=== PATIENT | male | born 1985 | race American Indian/Alaskan Native ===

== ENCOUNTER 2021-04-09 23:56 | Emergency (ER) | payer OTHER ==
[2021-04-10] MEDS ORDERED: KETOROLAC 30 MG/1 ML INJ IV ONE (00:15)
[2021-04-10 00:43] LABS: Basophils # (Auto) 0.1 K/mm3 (0.0-0.1); Basophils % (Auto) 0.9 % (0.0-1.8); Eosinophils # (Auto) 0.1 K/mm3 (0.0-0.4); Eosinophils % (Auto) 2.6 % (0.0-4.3); Hemoglobin 14.4 gm/dl (11.8-15.2); Lymphocytes # (Auto) 1.1 K/mm3 (1.2-5.4); Lymphocytes % (Auto) 19.7 % (13.4-35.0); Mean Corpuscular HGB Conc 32 % (32-34); Mean Corpuscular Volume 85 fl (84-94); Monocytes # (Auto) 0.5 K/mm3 (0.0-0.8); Monocytes % (Auto) 8.5 % (0.0-7.3); Platelet Count 246 K/mm3 (140-440); Red Blood Count 5.29 M/mm3 (3.65-5.03); Red Cell Distribution Width 14.4 % (13.2-15.2)
[2021-04-10 01:09] LABS: BUN/Creatinine Ratio 10; Blood Urea Nitrogen 11 mg/dL (9-20); Calcium 8.9 mg/dL (8.4-10.2); Hemolysis Index 6
--- NOTE | 2021-04-10 01:15 | XRay Report ---
CHEST 1 VIEW INDICATION / CLINICAL INFORMATION: CP. COMPARISON: Prior chest radiograph, 05/06/2015 FINDINGS: SUPPORT DEVICES: None. HEART / MEDIASTINUM: No significant abnormality. LUNGS / PLEURA: There is mild pulmonary opacity in the right lung base. The remainder of the lungs ar e grossly clear. Overall appearance is nonspecific but cannot exclude the possibility of pneumonia. N o pneumothorax. ADDITIONAL FINDINGS: No significant additional findings. IMPRESSION: 1. Small pulmonary opacity, right lung base. Differential diagnosis includes atelectasis versus pneum onia. Clinical correlation recommended. Signer Name: Mariam Woodson MD Signed: 04/10/2021 1:10 AM Workstation Name: [id number]
[2021-04-10 01:19] LABS: INR 0.94 (0.87-1.13)
[2021-04-10 01:20] LABS: Partial Thromboplastin Time 31.8 Sec. (24.2-36.6)
[2021-04-10] MEDS ORDERED: dexAMETHasone 20 MG/5 ML VIAL IV ONE (01:49)
[2021-04-10] MEDS ORDERED: MORPHINE 4 MG/1 ML INJ IV ONE (01:49)
[2021-04-10] MEDS ORDERED: cefTRIAXone/NS 1 GM/50 ML 1 GM/50 ML BAG IV ONE (01:49)
[2021-04-10] MEDS ORDERED: AZITHROMYCIN/NS 500 MG/250 ML 500 MG/250 ML BAG IV ONE (01:49)
--- NOTE | 2021-04-10 02:55 | Emergency Department Report ---
ED Chest Pain HPI - General Chief Complaint: Chest Pain Stated Complaint: CHEST PAIN Time Seen by Provider: 04/10/21 00:09 Source: patient, EMS Mode of arrival: Stretcher Limitations: Other - History of Present Illness Initial Comments: Patient is a 35-year-old F Mal[place]ian male was previously healthy presenting from prison with chest pain. Patient states the pain started yesterday. Is a steady constant pain. States aching sore pain in the center of his chest. Patient states he does have a cough and was diagnosed with Covid approximately 2 weeks ago. Cough is nonproductive. Mild shortness of breath but denies any diaphoresis. No exertional component. Denies fevers chills nausea vomiting diarrhea. States there is no body aches. Severity scale (0 -10): 5 - Related Data Previous Rx's Medication Instructions Recorded Last Taken Type levoFLOXacin [Levaquin TAB] 500 mg PO QDAY #3 tablet 05/07/15 Unknown Rx Gentamicin 0.3% Ophth Soln 2 drops OD Q4H #1 bottle 08/09/15 Unknown Rx Albuterol Mdi (or & Nicu Only) 2 puff IH QID PRN #1 inhalation 04/10/21 Unknown Rx [ProAir HFA Inhaler] Azithromycin [Zithromax Z-JIMBO] 250 mg PO DAILY #6 tablet 04/10/21 Unknown Rx Benzonatate [Tessalon Perles] 100 mg PO Q8HR #10 capsule 04/10/21 Unknown Rx Dexamethasone [Decadron] 6 mg PO DAILY #5 tablet 04/10/21 Unknown Rx traMADoL [Ultram] 50 mg PO Q6HR PRN #12 tablet 04/10/21 Unknown Rx Allergies Allergy/AdvReac Type Severity Reaction Status Date / Time venom-honey bee Allergy Rash Verified 12/19/14 08:28 [bee venom (honey bee)] Heart Score - HEART Score History: Slightly suspicious EKG: Normal Age: < 45 Risk factors: No known risk factors Troponin: < normal limit HEART Score: 0 - EKG Read Time Time EKG Completed: 00:15 EKG Read Time: 00:20 ED Review of Systems ROS: Stated complaint: CHEST PAIN Other details as noted in HPI Comment: All other systems reviewed and negative Constitutional: denies: chills, fever Eyes: denies: eye pain, eye discharge, vision change ENT: denies: ear pain, throat pain Respiratory: denies: cough, shortness of breath, wheezing Cardiovascular: chest pain Endocrine: no symptoms reported Gastrointestinal: denies: abdominal pain, nausea, diarrhea Genitourinary: denies: urgency, dysuria Musculoskeletal: denies: back pain, joint swelling, arthralgia Skin: denies: rash, lesions Neurological: denies: headache, weakness, paresthesias Psychiatric: denies: anxiety, depression Hematological/Lymphatic: denies: easy bleeding, easy bruising ED Past Medical Hx - Past Medical History Previous Medical History?: Yes Hx Hypertension: Yes Hx Congestive Heart Failure: No Hx Diabetes: No Hx Seizures: Yes Hx Asthma: No Hx COPD: No Hx HIV: No - Surgical History Past Surgical History?: Yes Hx Cholecystectomy: Yes (May 2014) - Social History Smoking Status: Current Every Day Smoker Substance Use Type: None - Medications Home Medications: Home Medications Medication Instructions Recorded Confirmed Last Taken Type levoFLOXacin [Levaquin TAB] 500 mg PO QDAY #3 tablet 05/07/15 Unknown Rx Gentamicin 0.3% Ophth Soln 2 drops OD Q4H #1 bottle 08/09/15 Unknown Rx Albuterol Mdi (or & Nicu Only) 2 puff IH QID PRN #1 inhalation 04/10/21 Unknown Rx [ProAir HFA Inhaler] Azithromycin [Zithromax Z-JIMBO] 250 mg PO DAILY #6 tablet 04/10/21 Unknown Rx Benzonatate [Tessalon Perles] 100 mg PO Q8HR #10 capsule 04/10/21 Unknown Rx Dexamethasone [Decadron] 6 mg PO DAILY #5 tablet 04/10/21 Unknown Rx traMADoL [Ultram] 50 mg PO Q6HR PRN #12 tablet 04/10/21 Unknown Rx ED Physical Exam - General Limitations: Other General appearance: alert, in no apparent distress - Head Head exam: Present: atraumatic, normocephalic - Eye Eye exam: Present: normal appearance, PERRL - ENT ENT exam: Present: mucous membranes moist - Neck Neck exam: Present: normal inspection - Respiratory Respiratory exam: Present: normal lung sounds bilaterally. Absent: respiratory distress, wheezes, rales, rhonchi - Cardiovascular Cardiovascular Exam: Present: regular rate, normal rhythm, normal heart sounds. Absent: systolic murmur, diastolic murmur, rubs, gallop - GI/Abdominal GI/Abdominal exam: Present: soft, normal bowel sounds. Absent: distended, tenderness, guarding, rebound - Rectal Rectal exam: Present: deferred - Extremities Exam Extremities exam: Present: normal inspection - Back Exam Back exam: Present: normal inspection - Neurological Exam Neurological exam: Present: alert, oriented X3 - Psychiatric Psychiatric exam: Present: normal affect, normal mood - Skin Skin exam: Present: warm, dry, intact, normal color. Absent: rash ED Course Vital Signs 04/10/21 04/10/21 04/10/21 00:45 00:51 01:36 Temperature 98.0 F Pulse Rate 83 Respiratory 20 20 20 Rate Blood Pressure 133/82 [Left] O2 Sat by Pulse 98 98 Oximetry 04/10/21 02:16 Temperature Pulse Rate Respiratory 20 Rate Blood Pressure [Left] O2 Sat by Pulse Oximetry ANNETTE score - Annette Score Age > 65: (0) No Aspirin use within the Past 7 Days: (0) No 3 or more CAD Risk Factors: (0) No 2 or more Angina events in past 24 hrs: (0) No Known CAD with more than 50% Stenosis: (0) No Elevated Cardiac Markers: (0) No ST Deviation Greater than 0.5mm: (0) No ANNETTE Score: 0 ED Medical Decision Making - Lab Data Result diagrams: 04/10/21 00:23 04/10/21 00:23 Labs 04/10/21 04/10/21 04/10/21 00:23 00:23 00:23 WBC 5.5 RBC 5.29 H Hgb 14.4 Hct 45.0 MCV 85 MCH 27 L MCHC 32 RDW 14.4 Plt Count 246 Lymph % (Auto) 19.7 Bartholomew % (Auto) 8.5 H Eos % (Auto) 2.6 Baso % (Auto) 0.9 Lymph # (Auto) 1.1 L Bartholomew # (Auto) 0.5 Eos # (Auto) 0.1 Baso # (Auto) 0.1 Seg Neutrophils % 68.3 Seg Neutrophils # 3.7 PT 13.6 INR 0.94 APTT 31.8 D-Dimer < 135.00 Sodium 140 Potassium 3.7 Chloride 106.3 Carbon Dioxide 22 Anion Gap 15 BUN 11 Creatinine 1.1 Estimated GFR > 60 BUN/Creatinine Ratio 10 Glucose 78 Calcium 8.9 Troponin T < 0.010 - EKG Data -: EKG Interpreted by Me EKG shows normal: sinus rhythm, axis, intervals, QRS complexes, ST-T waves Rate: normal - EKG Data Interpretation: normal EKG - Radiology Data INDICATION / CLINICAL INFORMATION: CP. COMPARISON: Prior chest radiograph, 05/06/2015 FINDINGS: SUPPORT DEVICES: None. HEART / MEDIASTINUM: No significant abnormality. LUNGS / PLEURA: There is mild pulmonary opacity in the right lung base. The remainder of the lungs are grossly clear. Overall appearance is nonspecific but cannot exclude the poss ibility of pneumonia. No pneumothorax. ADDITIONAL FINDINGS: No significant additional findings. IMPRESSION: 1. Small pulmonary opacity, right lung base. Differential diagnosis includes atelectasis versus pneumonia. Clinical correlation recommended. Signer Name: Mariam Woodson MD Signed: 04/10/2021 1:10 AM Workstation Name: [id number] - Medical Decision Making Patient 35-year-old F Mal[place]ian male who is presenting with chest pain. Pain is constant and is atypical for acute coronary syndrome. Patient does have a infiltrate on chest x-ray consistent with pneumonia. He is 2 weeks status post being diagnosed with Covid. Patient started on antibiotics and given a dose of Decadron. Discharge patient with medication for pain relief as well as antibiotics and steroids. Patient is D-dimer is within normal limits making pulmonary embolus much less likely. Patient stable for discharge Critical care attestation.: If time is entered above; I have spent that time in minutes in the direct care of this critically ill patient, excluding procedure time. ED Disposition Clinical Impression: Pneumonia, COVID, Atypical chest pain Disposition: 01 HOME / SELF CARE / HOMELESS Is pt being admited?: No Does the pt Need Aspirin: No Condition: Stable Instructions: Bacterial Pneumonia (ED), Nonspecific Chest Pain, Adult, Community-Acquired Pneumonia, Adult Referrals: PRIMARY CARE, [Primary Care Provider] - 3-5 Days Time of Disposition: 02:57
[2021-04-10 03:22] VITALS: BP 123/89
--- NOTE | 2021-04-11 14:33 | Electrocardiograph Report ---
[facility] Test Date: 2021-04-10 Test Time: 00:00:15 Pat Name: DENISHA SHAVER Department: Room: Gender: M Chef Manager: : 1985 Requested By: JOHANNY GUTIERREZ Order Number: [id number] Reading MD: Wilbur Doan Measurements Intervals [place] Rate: 82 P: 36 TX: 158 QRS: -11 QRSD: 74 T: 25 QT: 371 QTc: 434 Interpretive Statements Sinus rhythm Probable left atrial enlargement Poor R wave progression, consider old anteroseptal No previous ECG available for comparison Electronically Signed On 04-11-2021 14:32:49 EST by Wilbur Doan
== END 2021-04-10 04:01 | disposition home or self-care (01) ==
LOC: ED 23:56
DX: J18.9 Pneumonia, unspecified organism (principal); U07.1 COVID-19; R07.89 Other chest pain; F17.200 Nicotine dependence, unspecified, uncomplicated; I10 Essential (primary) hypertension; Z91.030 Bee allergy status
CPT/HCPCS: 36415; 71045; 80048; 84484; 85025; 85379; 85610; 85730; 93005; 93010; 96365; 96366; 96368; 96375; 99284; J0456; J0696; J1100; J1885; J2270